=== PATIENT | female | born 1960 | race Caucasian/White ===

== ENCOUNTER 2017-09-12 01:13 | Emergency (ER) | payer BC, OTHER ==
[2017-09-12 01:14] VITALS: BMI 26.4
[2017-09-12 01:21] VITALS: TEMP 98.9; O2SAT 100
--- NOTE | 2017-09-12 01:35 | ED PDOC ---
Arrival/HPI - General Chief Complaint: Allergic Reaction Time Seen by Provider: 09/12/17 01:31 Historian: Patient - History of Present Illness Narrative History of Present Illness (Text): 09/12/17 01:35 Selina Post is a 57 year old female who presents to the emergency department complaining of an allergic reaction tonight. Patient states she developed some facial swelling with associated pruritic rash. Patient was recently placed on Bactrim by her physician. Patient also had eaten shrimp/ seafood for dinner. Patient states she is unsure if she is allergic to Bactrim or seafood. Patient denies any fever, chills, chest pain, shortness of breath, abdominal pain, nausea, vomiting, diarrhea, urinary symptoms, back pain, neck pain, headache, dizziness, or any other complaints. Symptom Onset: Gradual Symptom Course: Unchanged Activities at Onset: Light Context: Home Past Medical History - Provider Review Nursing Documentation Reviewed: Yes - Infectious Disease Hx of Infectious Diseases: None - Tetanus Immunization Tetanus Immunization: Unknown - Cardiac Hx Cardiac Disorders: Yes Hx Hypertension: Yes - Psychiatric Hx Depression: No Hx Emotional Abuse: No Hx Physical Abuse: No Hx Substance Use: No - Surgical History Hx Appendectomy: Yes Hx Hysterectomy: Yes Hx Tubal Ligation: Yes Other/Comment: left breast surgery - Suicidal Assessment Feels Threatened In Home Enviroment: No Family/Social History - Physician Review Nursing Documentation Reviewed: Yes Family/Social History: Unknown Family HX Smoking Status: Never Smoked Hx Alcohol Use: Yes Frequency of alcohol use: Socially Hx Substance Use: No Hx Substance Use Treatment: No Allergies/Home Meds Allergies/Adverse Reactions: Allergies No Known Allergies Allergy (Verified 04/28/14 12:15) Home Medications: Home Meds Medication Instructions Recorded Confirmed Sulfamethoxazole/Trimethoprim 1 tab PO Q12H 09/12/17 09/12/17 [Bactrim DS 800 mg-160 mg] Valsartan [Diovan] 80 mg PO DAILY 09/12/17 09/12/17 Review of Systems - Physician Review All systems were reviewed & negative as marked: Yes - Review of Systems Constitutional: Normal. absent: Fevers Eyes: Normal ENT: Normal Respiratory: Normal. absent: SOB, Cough Cardiovascular: Normal. absent: Chest Pain Gastrointestinal: Normal. absent: Abdominal Pain, Constipation, Diarrhea, Nausea, Vomiting Genitourinary Female: Normal. absent: Dysuria, Frequency, Hematuria, Urine Output Changes Musculoskeletal: Normal. absent: Back Pain, Neck Pain Skin: Rash Neurological: Normal. absent: Headache, Dizziness Endocrine: Normal Hemo/Lymphatic: Normal Psychiatric: Normal Physical Exam Vital Signs Reviewed: Yes Vital Signs Temp Pulse Resp BP Pulse Ox 09/12/17 01:20 98.9 F 97 H 18 137/71 100 Temperature: Afebrile Blood Pressure: Normal Pulse: Regular Respiratory Rate: Normal Appearance: Positive for: Well-Appearing, Non-Toxic, Comfortable Pain Distress: None Mental Status: Positive for: Alert and Oriented X 3 - Systems Exam Head: Present: Atraumatic, Normocephalic, Swelling (Soma facial swelling) Pupils: Present: PERRL Extroacular Muscles: Present: EOMI Conjunctiva: Present: Normal Mouth: Present: Moist Mucous Membranes Neck: Present: Normal Range of Motion Respiratory/Chest: Present: Clear to Auscultation, Good Air Exchange. No: Respiratory Distress, Accessory Muscle Use Cardiovascular: Present: Regular Rate and Rhythm, Normal S1, S2. No: Murmurs Abdomen: Present: Normal Bowel Sounds. No: Tenderness, Distention, Peritoneal Signs Back: Present: Normal Inspection Upper Extremity: Present: Normal Inspection. No: Cyanosis, Edema Lower Extremity: Present: Normal Inspection. No: Edema Neurological: Present: GCS=15, CN II-XII Intact, Speech Normal Skin: Present: Warm, Dry, Rashes (Fine papular rash to face and arms), Normal Color Psychiatric: Present: Alert, Oriented x 3, Normal Insight, Normal Concentration Medical Decision Making ED Course and Treatment: 09/12/17 01:35 Impression: 57 year old female complaining of an allergic reaction tonight. Differential Diagnosis included but are not limited to: allergic reaction Plan: -- Benadryl -- Solu-medrol -- Reassess and disposition Progress Notes: 09/12/17 04:40 On reevaluation the patient feels better and is in no acute distress. I have discussed the results and plan with the patient, who expresses understanding. Patient given the opportunity to ask question, all questions were answered and there is agreement with the plan to discharge the patient home. Patient is stable for discharge. Patient was instructed to follow up with physician/clinic in 1-2 days or return if symptoms persist/worsen or new concerning symptoms arise. - Medication Orders Current Medication Orders: Discontinued Medications Diphenhydramine HCl (Benadryl) 25 mg PO ONCE ONE Stop: 09/12/17 01:38 Last Admin: 09/12/17 02:30 Dose: 25 mg Famotidine (Pepcid) 20 mg IVP STAT STA Stop: 09/12/17 03:49 Last Admin: 09/12/17 04:12 Dose: 20 mg IVP Administration Document 09/12/17 04:12 JOL (Rec: 09/12/17 04:13 JOL [id number]) Charges for Administration # of IVP Administrations 1 Methylprednisolone (Solu-Medrol) 125 mg IVP ONCE ONE Stop: 09/12/17 01:37 Last Admin: 09/12/17 02:30 Dose: 125 mg IVP Administration Document 09/12/17 02:30 SC (Rec: 09/12/17 02:30 SC [id number]) Charges for Administration # of IVP Administrations 1 - Scribe Statement The provider has reviewed the documentation as recorded by the Scribmeena Daniels All medical record entries made by the Scribe were at my direction and personally dictated by me. I have reviewed the chart and agree that the record accurately reflects my personal performance of the history, physical exam, medical decision making, and the department course for this patient. I have also personally directed, reviewed, and agree with the discharge instructions and disposition. Disposition/Present on Arrival - Present on Arrival Any Indicators Present on Arrival: No History of DVT/PE: No History of Uncontrolled Diabetes: No Urinary Catheter: No History of Decub. Ulcer: No History Surgical Site Infection Following: None - Disposition Have Diagnosis and Disposition been Completed?: Yes Diagnosis: Allergic reaction Disposition: HOME/ ROUTINE Disposition Time: 04:37 Patient Plan: Discharge Patient Problems: Current Active Problems Problem Status Onset Allergic reaction Acute Condition: GOOD Discharge Instructions (ExitCare): Urticaria (ED), Allergies (ED) Additional Instructions: Stop Bactrim(smz/tmp) meds/Take meds as prescribed/follow up with your doctor this week/any recurrent worsening symptoms return to the emergency room Prescriptions: DiphenhydrAMINE [Benadryl] 50 mg PO Q6 PRN #24 cap PRN Reason: Itching / Pruritus Cephalexin [cephalexin] 500 mg PO BID #14 cap predniSONE [Prednisone] 40 mg PO DAILY #10 tab Forms: [employer] (Italian)
[2017-09-12] MEDS ORDERED: DiphenhydrAMINE 12.5 mg/5 ml LIQ UD (5 ml) PO STA (01:36)
[2017-09-12] MEDS ORDERED: DiphenhydrAMINE 50 mg/ml Inj ONE (02:16)
[2017-09-12 04:54] VITALS: BP 135/70; PULSE 82; RESP 16
== END 2017-09-12 04:50 | disposition home or self-care (01) ==
LOC: ED 01:13
DX: T78.40XA Allergy, unspecified, initial encounter (principal); I10 Essential (primary) hypertension; Z98.51 Tubal ligation status
CPT/HCPCS: 96374; 96375; 99284; J2930